=== PATIENT | male | born 1990 | race African-American/Black ===

== ENCOUNTER 2017-01-08 15:49 | Inpatient (IN) | payer MEDICARE ==
[~2017-01-08] VITALS: Ht 180.3 cm; Wt 92.1 kg
[2017-01-08 19:06] VITALS: BP 124/66
[2017-01-08] MEDS ORDERED: LORazepam 2 MG TABLET PO PRN (19:15)
[2017-01-08] MEDS ORDERED: ZOLPIDEM TARTRATE 10 MG TABLET PO PRN (19:15)
[2017-01-08 20:11] VITALS: BP 123/60
[2017-01-08 20:39] VITALS: BP 123/60
[2017-01-08] MEDS ORDERED: INFLUENZA VIRUS VACCINE QVS 2017-18 (3YR+)/PF 60 MCG/0.5 ML SYRINGE IM ONE (21:45)
[2017-01-09 05:55] VITALS: BP 125/69
[2017-01-09 08:10] VITALS: BP 127/75
[2017-01-09 08:29] LABS: EOSINOPHILS % (AUTO) 1.9 % (1.0-6.0); HEMATOCRIT 44.3 % (41-53); LYMPHOCYTES # (AUTO) 0.3 K/uL (1.0-4.8); LYMPHOCYTES % (AUTO) 4.1 % (22.0-44.0); MEAN CORPUSCULAR HEMOGLOBIN 28.1 pg (26.0-34.0); MEAN CORPUSCULAR HGB CONC 33.8 G/dL (31.0-37.0); MEAN CORPUSCULAR VOLUME 83 fL (80-100); MONOCYTES # (AUTO) 0.5 K/uL (0.1-1.0); MONOCYTES % (AUTO) 5.7 % (2.0-9.0); NEUTROPHILS # (AUTO) 7.1 K/uL (1.8-7.7); PLATELET COUNT (AUTO) 128 K/uL (150-450); RED BLOOD CELL COUNT(AUTO) 5.33 MIL/uL (4.50-5.90); RED CELL DISTRIBUTION WIDTH 14.6 % (11.5-14.5); WHITE BLOOD COUNT (AUTO) 8.1 K/uL (4.5-11.0)
[2017-01-09 08:32] LABS: NEUTROPHILS % (AUTO) 88.3 % (40.0-70.0)
[2017-01-09 08:55] LABS: LITHIUM < 0.20 mmol/L (0.60-1.20)
[2017-01-09 09:16] LABS: ALANINE AMINOTRANSFERASE 21 U/L (12-78); ALBUMIN 3.3 g/dL (3.4-5.0); ANION GAP 7 mmol/L (8-16); ASPARTATE AMINOTRANSFERASE 19 U/L (15-37); BILIRUBIN,TOTAL 1.2 mg/dL (0.1-1.0); CALCIUM, TOTAL 8.8 mg/dL (8.8-10.5); CARBON DIOXIDE 25 mmol/L (22-29); CHLORIDE 105 mmol/L (98-107); GLOMERULAR FILTR. RATE CALC > 60 mL/min (>60); POTASSIUM 4.1 mmol/L (3.5-5.1); SODIUM SERUM 137 mmol/L (136-145); THYROID STIMULATING HORMONE 0.62 uIU/mL (0.36-3.74); TOTAL PROTEIN, SERUM 6.4 g/dL (6.4-8.2); UREA NITROGEN, BLOOD 14 mg/dL (7-18)
[2017-01-09] MEDS ORDERED: BENZOCAINE/MENTHOL LOZENGE PO PRN (11:15)
[2017-01-09 16:00] VITALS: BP 130/85
[2017-01-09] MEDS ORDERED: ACETAMINOPHEN 325 MG TABLET PO PRN (19:45)
[2017-01-09] MEDS ORDERED: IBUPROFEN 400 MG TABLET PO PRN (19:45)
[2017-01-09] MEDS: LITHIUM CARBONATE 600 MG CAPSULE PO SCH (21:07)
[2017-01-10 06:58] VITALS: BP 138/90
[2017-01-10 08:19] VITALS: BP 128/73
[2017-01-10 16:00] VITALS: BP 136/79
[2017-01-10] MEDS: LITHIUM CARBONATE 600 MG CAPSULE PO SCH (20:34)
[2017-01-11 07:14] VITALS: BP 123/78
[2017-01-11 08:20] VITALS: BP 120/68
[2017-01-11] MEDS ORDERED: LITH600 PO (12:51)
== END 2017-01-11 13:45 | disposition home or self-care (01) | DRG 885 ==
LOC: B3A 19:17
PROVIDERS: ADMIT Psychiatry & Neurology Psychiatry; ATTEND Psychiatry & Neurology Child & Adolescent Psychiatry
DX: F25.1 Schizoaffective disorder, depressive type (principal); E88.09 Other disorders of plasma-protein metabolism, not elsewhere classified; R17 Unspecified jaundice; E03.9 Hypothyroidism, unspecified; F19.10 Other psychoactive substance abuse, uncomplicated; Z88.0 Allergy status to penicillin
CPT/HCPCS: 84439; 84443; 87081; 90471